=== PATIENT | male | born 1975 | race Caucasian/White ===

== ENCOUNTER 2017-04-13 14:07 | Emergency (ER) | payer OTHER ==
[~2017-04-13] VITALS: Ht 180.3 cm; Wt 90.7 kg
[~2017-04-13 14:07] MED LIST: ALBU4; ALBU90OI INH; AZIT250 PO; BENZ100A PO; CEPH500 PO; CLIN150 PO; CLIN300 PO; CRUTCH4 USE; Cleocin HCl300 MG PO; DIPATR PO; ERYT333ERA PO; HYDACE10B PO; HYDACE5 PO; IBUP800 PO; NAPR500 PO; NAPR550 PO; PENVK500 PO; PRED20 PO; PROM25 PO; Prednisone20 MG PO; Pseudoephedrine30 MG PO; ROBAFEN-DM SYR118 ML PO; RXHYDACE PO; SULTRIDS PO; Ultram50 MG PO
[2017-04-13] MEDS ORDERED: Vibramycin100 MG PO (16:00)
[2017-04-13] MEDS ORDERED: ALBU90OI INH (16:00)
[2017-04-13] MEDS ORDERED: Prednisone20 MG PO (16:00)
== END 2017-04-13 16:09 | disposition home or self-care (01) ==
LOC: ER 14:07
DX: R05 Cough (principal); Z88.0 Allergy status to penicillin; Z87.891 Personal history of nicotine dependence
CPT/HCPCS: 71046; 94640; 99284

== ENCOUNTER 2017-04-26 18:22 | Emergency (ER) | payer OTHER ==
[~2017-04-26] VITALS: Ht 180.3 cm; Wt 90.7 kg
[~2017-04-26 18:22] MED LIST changes: +Vibramycin100 MG PO
[2017-04-26 19:15] LABS: Troponin I <0.015 ng/mL (0.000-0.040)
[2017-04-26 19:17] LABS: Alanine Aminotransfer (ALT/SGP 26 U/L (12-78); Albumin, Blood 4.6 g/dL (3.4-5.0); Albumin/Globulin Ratio 1.2 (0.8-1.8); Alk Phos 120 U/L (50-136); Anion Gap 12 mmol/L (6-16); Aspartate Aminotrans (AST/SGOT 27 U/L (12-37); Bilirubin, Total 0.6 mg/dL (0.1-1.0); Blood Urea Nitrogen 6 mg/dL (8-24); Bun/Creatinine Ratio 8.5 (12.0-20.0); CO2, Blood 23 mmol/L (21-32); Calcium, Blood 9.6 mg/dL (8.5-10.1); Chloride, Blood 101 mmol/L (98-108); Creatinine, Blood 0.71 mg/dL (0.60-1.20); Globulin, Blood 3.7 g/dL (2.2-4.0); Glomerular Filtration Rate >60 (60-); Glucose, Blood 94 mg/dL (70-99); Potassium, Blood 3.3 mmol/L (3.5-5.5); Sodium, Blood 136 mmol/L (136-145); Total Protein, Blood 8.3 g/dL (6.4-8.2)
[2017-04-26 19:18] LABS: BASOPHILS ABSOLUTE AUTO 0.07 K/mm3 (0.00-0.23); BASOPHILS PERCENT AUTO 1 % (0-2); EOSINOPHILS ABSOLUTE AUTO 0.02 K/mm3 (0.00-0.68); EOSINOPHILS PERCENT AUTO 0 % (0-6); Hemoglobin 19.1 g/dL (13.5-17.5); IMMATURE GRAN ABSOLUTE AUTO 0.01 K/mm3 (0.00-0.10); IMMATURE GRAN PERCENT AUTO 0 % (0-1); LYMPHOCYTES ABSOLUTE AUTO 1.31 K/mm3 (0.84-5.20); LYMPHOCYTES PERCENT AUTO 18 % (21-46); MONOCYTES PERCENT AUTO 14 % (4-13); Mean Corpuscular HGB 30.7 pg (26.0-34.0); Mean Corpuscular HGB Conc 34.6 g/dL (31.5-36.5); Mean Corpuscular Volume 89 fL (80-100); Mean Platelet Volume 10.3 fL (9.1-12.4); NEUTROPHILS ABSOLUTE AUTO 4.82 K/mm3 (1.96-9.15); NEUTROPHILS PERCENT AUTO 67 % (41-73); Platelet Count 251 K/mm3 (150-400); RDW Coefficient Variation 12.5 % (11.7-14.2); RDW Standard Deviation 41.1 fL (35.1-46.3); Red Blood Cell Count 6.22 M/mm3 (4.30-5.90); White Blood Cell Count 7.23 K/mm3 (4.00-11.30)
[2017-04-26 19:27] LABS: Hematocrit 55.2 % (37.0-53.0)
== END 2017-04-26 21:20 | disposition home or self-care (01) ==
LOC: ER 18:22
PROVIDERS: Physician Assistant
DX: R07.9 Chest pain, unspecified (principal); Z88.0 Allergy status to penicillin; Z79.899 Other long term (current) drug therapy; Z79.52 Long term (current) use of systemic steroids; Z87.891 Personal history of nicotine dependence
CPT/HCPCS: 36415; 71046; 80053; 84484; 85025; 93005; 93010; 99283

== ENCOUNTER 2017-04-28 22:04 | Emergency (ER) | payer OTHER ==
[~2017-04-28] VITALS: Ht 180.3 cm; Wt 90.7 kg
[2017-04-28 22:39] LABS: Source, Urine Clean Catch
[2017-04-28 22:52] LABS: Bilirubin, Urine Neg (Neg); Blood, Urine 1+ (Neg); Glucose Qualitative, Urine Neg (Neg); Ketones, Urine Neg (Neg); Leukocyte Esterase, Urine 1+ (Neg); Nitrite, Urine Neg (Neg); Protein, Urine 1+ (Neg); Specific Gravity, Urine 1.025 (1.003-1.022); Urobilinogen, Urine 1+ (Normal)
[2017-04-28 22:53] LABS: BASOPHILS ABSOLUTE AUTO 0.01 K/mm3 (0.00-0.23); BASOPHILS PERCENT AUTO 0 % (0-2); EOSINOPHILS PERCENT AUTO 0 % (0-6); Hematocrit 49.7 % (37.0-53.0); Hemoglobin 17.7 g/dL (13.5-17.5); IMMATURE GRAN ABSOLUTE AUTO 0.01 K/mm3 (0.00-0.10); IMMATURE GRAN PERCENT AUTO 0 % (0-1); LYMPHOCYTES ABSOLUTE AUTO 1.34 K/mm3 (0.84-5.20); LYMPHOCYTES PERCENT AUTO 27 % (21-46); MONOCYTES ABSOLUTE AUTO 0.73 K/mm3 (0.16-1.47); MONOCYTES PERCENT AUTO 15 % (4-13); Mean Corpuscular HGB 30.9 pg (26.0-34.0); Mean Corpuscular HGB Conc 35.6 g/dL (31.5-36.5); Mean Corpuscular Volume 87 fL (80-100); Mean Platelet Volume 10.3 fL (9.1-12.4); NEUTROPHILS ABSOLUTE AUTO 2.94 K/mm3 (1.96-9.15); NEUTROPHILS PERCENT AUTO 59 % (41-73); Platelet Count 201 K/mm3 (150-400); RDW Coefficient Variation 12.3 % (11.7-14.2); RDW Standard Deviation 39.4 fL (35.1-46.3); Red Blood Cell Count 5.72 M/mm3 (4.30-5.90); White Blood Cell Count 5.03 K/mm3 (4.00-11.30)
[2017-04-28 22:58] LABS: Appearance, Urine Clear (Clear); Color, Urine Yellow (P-Yellow)
[2017-04-28 22:59] LABS: Bacteria Few /hpf; Mucus Light (0-Heavy); Red Blood Cells, Urine 0-2 /hpf (0-2); Squamous Epithelial Cells Not Seen /hpf (Few); White Blood Cells, Urine 0-2 /hpf (0-5)
[2017-04-28 23:20] LABS: Alanine Aminotransfer (ALT/SGP 65 U/L (12-78); Albumin/Globulin Ratio 1.1 (0.8-1.8); Alk Phos 94 U/L (50-136); Anion Gap 9 mmol/L (6-16); Aspartate Aminotrans (AST/SGOT 46 U/L (12-37); Bilirubin, Total 0.4 mg/dL (0.1-1.0); Blood Urea Nitrogen 16 mg/dL (8-24); Bun/Creatinine Ratio 19.3 (12.0-20.0); CO2, Blood 26 mmol/L (21-32); Calcium, Blood 8.5 mg/dL (8.5-10.1); Chloride, Blood 100 mmol/L (98-108); Creatinine, Blood 0.83 mg/dL (0.60-1.20); Globulin, Blood 3.6 g/dL (2.2-4.0); Glomerular Filtration Rate >60 (60-); Glucose, Blood 103 mg/dL (70-99); Potassium, Blood 3.6 mmol/L (3.5-5.5); Sodium, Blood 135 mmol/L (136-145); Total Protein, Blood 7.6 g/dL (6.4-8.2)
[2017-04-28] MEDS ORDERED: IBUP600 PO (23:31)
== END 2017-04-28 23:54 | disposition home or self-care (01) ==
LOC: ER 22:04
PROVIDERS: Emergency Medicine
DX: S39.012A Strain of muscle, fascia and tendon of lower back, initial encounter (principal); F17.200 Nicotine dependence, unspecified, uncomplicated; Z88.0 Allergy status to penicillin; W19.XXXA Unspecified fall, initial encounter; Y92.002 Bathroom of unspecified non-institutional (private) residence as the place of occurrence of the external cause
CPT/HCPCS: 36415; 72100; 80053; 81001; 85025; 87086; 99283

== ENCOUNTER → 2017-05-22 | Outpatient (CLI) | payer OTHER ==
[~2017-05-22] MED LIST changes: +IBUP400 PO; +IBUP600 PO
== END | disposition home or self-care (01) ==
LOC: LAB 13:49
PROVIDERS: Internal Medicine Hematology & Oncology
DX: E83.119 Hemochromatosis, unspecified (principal)
CPT/HCPCS: 81256

== ENCOUNTER 2017-09-06 20:34 | Emergency (ER) | payer OTHER ==
[~2017-09-06] VITALS: Ht 180.3 cm; Wt 95.2 kg
[~2017-09-06 20:34] MED LIST changes: -IBUP400 PO
[2017-09-06] MEDS ORDERED: IBUP400 PO (22:59)
== END 2017-09-06 23:14 | disposition home or self-care (01) ==
LOC: ER 20:34
DX: M79.605 Pain in left leg (principal); Z88.0 Allergy status to penicillin; F17.200 Nicotine dependence, unspecified, uncomplicated
CPT/HCPCS: 73590

== ENCOUNTER 2018-03-14 14:15 | Emergency (ER) | payer OTHER ==
[~2018-03-14] VITALS: Ht 180.3 cm; Wt 90.7 kg
[~2018-03-14 14:15] MED LIST changes: +IBUP400 PO
[2018-03-14] MEDS ORDERED: Cleocin HCl300 MG PO (15:13)
[2018-03-14] MEDS ORDERED: IBUP800 PO (15:13)
== END 2018-03-14 15:18 | disposition home or self-care (01) ==
LOC: ER 14:15
DX: K02.9 Dental caries, unspecified (principal); F17.210 Nicotine dependence, cigarettes, uncomplicated; Z88.0 Allergy status to penicillin
CPT/HCPCS: 99282

== ENCOUNTER 2019-02-09 17:36 | Emergency (ER) | payer OTHER ==
[~2019-02-09] VITALS: Ht 177.8 cm; Wt 90.7 kg
[2019-02-09] MEDS ORDERED: Prednisone20 MG PO (19:55)
== END 2019-02-09 20:21 | disposition home or self-care (01) ==
LOC: ER 17:36
DX: R06.2 Wheezing (principal); R05 Cough; F17.200 Nicotine dependence, unspecified, uncomplicated; Z88.0 Allergy status to penicillin
CPT/HCPCS: 71046; 94640; 99283-25

== ENCOUNTER 2019-03-23 16:26 | Emergency (ER) | payer OTHER ==
[~2019-03-23] VITALS: Ht 180.3 cm; Wt 95.7 kg
[2019-03-23] MEDS ORDERED: ALBU90OI INH (18:20)
== END 2019-03-23 18:28 | disposition home or self-care (01) ==
LOC: ER 16:26
DX: J45.909 Unspecified asthma, uncomplicated (principal); J20.9 Acute bronchitis, unspecified; Z88.0 Allergy status to penicillin; Z79.52 Long term (current) use of systemic steroids; F17.200 Nicotine dependence, unspecified, uncomplicated
CPT/HCPCS: 71046; 93005; 93010; 99283-25

== ENCOUNTER 2019-03-28 23:56 | Emergency (ER) | payer OTHER ==
[~2019-03-28] VITALS: Ht 180.3 cm; Wt 95.2 kg
[2019-03-29] MEDS ORDERED: Zithromax250 MG PO (01:27)
[2019-03-29] MEDS ORDERED: Prednisone50 MG PO (01:27)
== END 2019-03-29 02:07 | disposition home or self-care (01) ==
LOC: ER 23:56
DX: J44.1 Chronic obstructive pulmonary disease with (acute) exacerbation (principal); F17.210 Nicotine dependence, cigarettes, uncomplicated; Z88.0 Allergy status to penicillin
CPT/HCPCS: 71045; 93005; 93010; 94640; 99284-25; J1100

== ENCOUNTER 2019-05-17 19:03 | Emergency (ER) | payer OTHER ==
[~2019-05-17] VITALS: Ht 180.3 cm; Wt 97.5 kg
[~2019-05-17 19:03] MED LIST changes: +Prednisone50 MG PO; +Zithromax250 MG PO
[2019-05-17] MEDS ORDERED: Cipro500 MG PO (22:22)
== END 2019-05-17 22:30 | disposition home or self-care (01) ==
LOC: ER 19:03
DX: S91.332A Puncture wound without foreign body, left foot, initial encounter (principal); F17.210 Nicotine dependence, cigarettes, uncomplicated; Z88.0 Allergy status to penicillin; W45.0XXA Nail entering through skin, initial encounter
CPT/HCPCS: 73620; 90471; 90714; 99283-25

== ENCOUNTER 2019-10-13 16:16 | Emergency (ER) | payer OTHER ==
[~2019-10-13] VITALS: Ht 180.3 cm; Wt 104.3 kg
[~2019-10-13 16:16] MED LIST changes: +Cipro500 MG PO
== END 2019-10-13 17:30 | disposition home or self-care (01) ==
LOC: ER 16:16
DX: Z04.1 Encounter for examination and observation following transport accident (principal); Z88.0 Allergy status to penicillin; Z79.2 Long term (current) use of antibiotics; F17.210 Nicotine dependence, cigarettes, uncomplicated; V89.2XXA Person injured in unspecified motor-vehicle accident, traffic, initial encounter
CPT/HCPCS: 99284

== ENCOUNTER 2020-07-06 10:30 | Emergency (ER) | payer OTHER ==
[~2020-07-06] VITALS: Ht 180.3 cm; Wt 108.9 kg
== END 2020-07-06 11:50 | disposition home or self-care (01) ==
LOC: ER 10:30
DX: S61.431A Puncture wound without foreign body of right hand, initial encounter (principal); F17.210 Nicotine dependence, cigarettes, uncomplicated; Z88.0 Allergy status to penicillin
CPT/HCPCS: 73120; 99283-25

== ENCOUNTER → 2020-11-24 | Outpatient (CLI) | payer OTHER ==
[2020-11-24 10:42] LABS: BASOPHILS ABSOLUTE AUTO 0.06 K/mm3 (0.00-0.23); BASOPHILS PERCENT AUTO 1 % (0-2); EOSINOPHILS ABSOLUTE AUTO 0.03 K/mm3 (0.00-0.68); EOSINOPHILS PERCENT AUTO 1 % (0-6); Hematocrit 50.8 % (37.0-53.0); Hemoglobin 17.3 g/dL (13.5-17.5); IMMATURE GRAN ABSOLUTE AUTO 0.02 K/mm3 (0.00-0.10); IMMATURE GRAN PERCENT AUTO 0 % (0-1); LYMPHOCYTES ABSOLUTE AUTO 1.32 K/mm3 (0.84-5.20); LYMPHOCYTES PERCENT AUTO 22 % (21-46); MONOCYTES ABSOLUTE AUTO 0.97 K/mm3 (0.16-1.47); MONOCYTES PERCENT AUTO 17 % (4-13); Mean Corpuscular HGB 30.2 pg (26.0-34.0); Mean Corpuscular HGB Conc 34.1 g/dL (31.5-36.5); Mean Corpuscular Volume 89 fL (80-100); Mean Platelet Volume 10.2 fL (9.1-12.4); NEUTROPHILS ABSOLUTE AUTO 3.48 K/mm3 (1.96-9.15); NEUTROPHILS PERCENT AUTO 59 % (41-73); Platelet Count 251 K/mm3 (150-400); RDW Coefficient Variation 12.9 % (11.7-14.2); RDW Standard Deviation 41.9 fL (35.1-46.3); Red Blood Cell Count 5.72 M/mm3 (4.30-5.90); White Blood Cell Count 5.88 K/mm3 (4.00-11.30)
== END | disposition home or self-care (01) ==
LOC: LAB 10:37 → LAB SHORT 10:37
PROVIDERS: Registered Nurse Oncology
DX: E83.119 Hemochromatosis, unspecified (principal)
CPT/HCPCS: 82728; 83540; 83550; 85025; 85651

== ENCOUNTER 2021-05-31 12:12 | Emergency (ER) | payer OTHER ==
[~2021-05-31] VITALS: Ht 180.3 cm; Wt 113.4 kg
== END 2021-05-31 13:55 | disposition home or self-care (01) ==
LOC: ER 12:12
DX: S61.211A Laceration without foreign body of left index finger without damage to nail, initial encounter (principal); Z88.0 Allergy status to penicillin; F17.210 Nicotine dependence, cigarettes, uncomplicated; W25.XXXA Contact with sharp glass, initial encounter
CPT/HCPCS: 12001; 99282

== ENCOUNTER → 2022-12-26 | Outpatient (CLI) | payer OTHER ==
[2022-12-26 19:42] LABS: BASOPHILS ABSOLUTE AUTO 0.12 K/mm3 (0.00-0.23); BASOPHILS PERCENT AUTO 1 % (0-2); EOSINOPHILS ABSOLUTE AUTO 0.62 K/mm3 (0.00-0.68); EOSINOPHILS PERCENT AUTO 6 % (0-6); Hematocrit 47.9 % (37.0-53.0); Hemoglobin 17.1 g/dL (13.5-17.5); IMMATURE GRAN ABSOLUTE AUTO 0.03 K/mm3 (0.00-0.10); IMMATURE GRAN PERCENT AUTO 0 % (0-1); LYMPHOCYTES ABSOLUTE AUTO 2.73 K/mm3 (0.84-5.20); LYMPHOCYTES PERCENT AUTO 24 % (21-46); MONOCYTES ABSOLUTE AUTO 1.08 K/mm3 (0.16-1.47); MONOCYTES PERCENT AUTO 10 % (4-13); Mean Corpuscular HGB 31.6 pg (26.0-34.0); Mean Corpuscular HGB Conc 35.7 g/dL (31.5-36.5); Mean Corpuscular Volume 89 fL (80-100); Mean Platelet Volume 11.1 fL (9.1-12.4); NEUTROPHILS ABSOLUTE AUTO 6.67 K/mm3 (1.96-9.15); NEUTROPHILS PERCENT AUTO 59 % (41-73); Platelet Count 373 K/mm3 (150-400); RDW Coefficient Variation 12.6 % (11.7-14.2); RDW Standard Deviation 40.9 fL (35.1-46.3); Red Blood Cell Count 5.41 M/mm3 (4.30-5.90); White Blood Cell Count 11.25 K/mm3 (4.00-11.30)
[2022-12-26 22:01] LABS: Alanine Aminotransfer (ALT/SGP 28 U/L (12-78); Albumin, Blood 4.6 g/dL (3.4-5.0); Albumin/Globulin Ratio 1.5 (0.8-1.8); Alk Phos 121 U/L (50-136); Anion Gap 5 mmol/L (6-16); Aspartate Aminotrans (AST/SGOT 11 U/L (12-37); Bilirubin, Total 0.3 mg/dL (0.1-1.0); Blood Urea Nitrogen 14 mg/dL (8-24); Bun/Creatinine Ratio 14.7 (12.0-20.0); CHOL/HDL RATIO 6.5; CO2, Blood 26 mmol/L (21-32); Calcium, Blood 9.4 mg/dL (8.5-10.1); Chloride, Blood 105 mmol/L (98-108); Cholesterol 221 mg/dL (50-200); Creatinine, Blood 0.95 mg/dL (0.60-1.20); Globulin, Blood 3.1 g/dL (2.2-4.0); Glomerular Filtration Rate 101 (60-); Glucose, Blood 95 mg/dL (70-99); HDL Cholesterol 34 mg/dL (>39); LDL/HDL RATIO 3.8; Low Density Lipoprotein Chol 128 mg/dL (0-110); Potassium, Blood 4.2 mmol/L (3.5-5.5); Sodium, Blood 136 mmol/L (136-145); Total Protein, Blood 7.7 g/dL (6.4-8.2); Triglycerides 296 mg/dL (30-160); Very Low Density Lipoprot Chol 59 mg/dL (6-32)
== END | disposition home or self-care (01) ==
LOC: LAB 18:48 → LAB SHORT 18:48
PROVIDERS: Nurse Practitioner Family
DX: E55.9 Vitamin D deficiency, unspecified (principal); E78.5 Hyperlipidemia, unspecified; I10 Essential (primary) hypertension
CPT/HCPCS: 80053; 80061; 82306; 85025

== ENCOUNTER 2023-09-07 12:43 | Emergency (ER) | payer OTHER ==
[~2023-09-07] VITALS: Ht 180.3 cm; Wt 113.4 kg
[2023-09-07 13:32] VITALS: BP 139/80
[2023-09-07] MEDS ORDERED: LISI20 PO (13:36)
[2023-09-07] MEDS ORDERED: ALBUTEROL HFA 90MCG (13:37)
[2023-09-07] MEDS ORDERED: IPRAT-ALBUT 0.5-3 ML (13:37)
[2023-09-07] MEDS ORDERED: CEPH500 PO (13:44)
[2023-09-07] MEDS ORDERED: CLIN150 PO (13:44)
== END 2023-09-07 13:47 | disposition home or self-care (01) ==
LOC: ER 12:43
DX: L03.115 Cellulitis of right lower limb (principal); F17.210 Nicotine dependence, cigarettes, uncomplicated
CPT/HCPCS: 99283

== ENCOUNTER 2023-11-22 23:47 | Emergency (ER) | payer SELFPAY ==
[~2023-11-22] VITALS: Ht 180.3 cm; Wt 113.4 kg
[~2023-11-22 23:47] MED LIST changes: +ALBUTEROL HFA 90MCG; +IPRAT-ALBUT 0.5-3 ML; +LISI20 PO
[2023-11-23] MEDS ORDERED: Lidocaine 4% 1 Patch TOP ONE (02:10)
[2023-11-23] MEDS ORDERED: Acetaminophen 500 MG Tab PO ONE (02:10)
[2023-11-23] MEDS ORDERED: Ibuprofen 600 MG Tab PO ONE (02:10)
[2023-11-23 02:15] VITALS: BP 131/73
[2023-11-23] MEDS ORDERED: LIDO700A20 TOP (02:16)
== END 2023-11-23 02:27 | disposition home or self-care (01) ==
LOC: ER 23:47
DX: M75.52 Bursitis of left shoulder (principal); I10 Essential (primary) hypertension; Z68.34 Body mass index [BMI] 34.0-34.9, adult; F17.210 Nicotine dependence, cigarettes, uncomplicated; Z79.899 Other long term (current) drug therapy; Z88.0 Allergy status to penicillin
CPT/HCPCS: 93005; 93010; 99283-25; A9270

== ENCOUNTER 2024-01-04 11:01 | Emergency (ER) | payer SELFPAY ==
[~2024-01-04] VITALS: Ht 180.3 cm; Wt 112.5 kg
[~2024-01-04 11:01] MED LIST changes: +LIDO700A20 TOP
[2024-01-04 11:14] VITALS: BP 140/90
[2024-01-04] MEDS ORDERED: CEPH500 PO (11:18)
[2024-01-04] MEDS ORDERED: MONDOXYNE NL100 MG PO (12:27)
== END 2024-01-04 11:18 | disposition home or self-care (01) ==
LOC: ER 11:01
DX: J34.0 Abscess, furuncle and carbuncle of nose (principal); F17.210 Nicotine dependence, cigarettes, uncomplicated; Z79.899 Other long term (current) drug therapy; Z88.0 Allergy status to penicillin
CPT/HCPCS: 99282

== ENCOUNTER 2024-01-06 09:08 | Emergency (ER) | payer SELFPAY ==
[~2024-01-06] VITALS: Ht 180.3 cm; Wt 113.4 kg
[~2024-01-06 09:08] MED LIST changes: +MONDOXYNE NL100 MG PO
[2024-01-06 09:39] VITALS: BP 136/78
[2024-01-06] MEDS ORDERED: CEPH500 PO (10:10)
== END 2024-01-06 10:50 | disposition home or self-care (01) ==
LOC: ER 09:08
DX: A46 Erysipelas (principal); J44.9 Chronic obstructive pulmonary disease, unspecified; I10 Essential (primary) hypertension; F17.210 Nicotine dependence, cigarettes, uncomplicated; Z88.0 Allergy status to penicillin; Z79.899 Other long term (current) drug therapy
CPT/HCPCS: 87070; 87077; 87147; 87186; 87205; 99283

== ENCOUNTER 2024-01-07 11:54 | Emergency (ER) | payer SELFPAY ==
[~2024-01-07] VITALS: Ht 180.3 cm; Wt 113.4 kg
[2024-01-07 11:59] VITALS: BP 190/93
[2024-01-07 12:18] LABS: BASOPHILS ABSOLUTE AUTO 0.11 K/mm3 (0.00-0.23); BASOPHILS PERCENT AUTO 1 % (0-2); EOSINOPHILS ABSOLUTE AUTO 0.89 K/mm3 (0.00-0.68); EOSINOPHILS PERCENT AUTO 9 % (0-6); Hematocrit 48.8 % (37.0-53.0); Hemoglobin 17.3 g/dL (13.5-17.5); IMMATURE GRAN ABSOLUTE AUTO 0.01 K/mm3 (0.00-0.10); IMMATURE GRAN PERCENT AUTO 0 % (0-1); LYMPHOCYTES ABSOLUTE AUTO 2.07 K/mm3 (0.84-5.20); LYMPHOCYTES PERCENT AUTO 20 % (21-46); MONOCYTES PERCENT AUTO 9 % (4-13); Mean Corpuscular HGB 31.2 pg (26.0-34.0); Mean Corpuscular HGB Conc 35.5 g/dL (31.5-36.5); Mean Corpuscular Volume 88 fL (80-100); NEUTROPHILS ABSOLUTE AUTO 6.27 K/mm3 (1.96-9.15); NEUTROPHILS PERCENT AUTO 61 % (41-73); Platelet Count 281 K/mm3 (150-400); RDW Coefficient Variation 12.2 % (11.7-14.2); RDW Standard Deviation 39.4 fL (35.1-46.3); Red Blood Cell Count 5.55 M/mm3 (4.30-5.90); White Blood Cell Count 10.25 K/mm3 (4.00-11.30)
[2024-01-07 12:32] LABS: Albumin, Blood 4.2 g/dL (3.4-5.0); Albumin/Globulin Ratio 1.3 (0.8-1.8); Bilirubin, Total 0.4 mg/dL (0.1-1.0); Bun/Creatinine Ratio 15.3 (12.0-20.0); Calcium, Blood 9.2 mg/dL (8.5-10.1); Creatinine, Blood 0.85 mg/dL (0.60-1.20); Globulin, Blood 3.3 g/dL (2.2-4.0); Potassium, Blood 3.9 mmol/L (3.5-5.5); Total Protein, Blood 7.5 g/dL (6.4-8.2)
== END 2024-01-07 16:28 | disposition home or self-care (01) ==
LOC: ER 11:54
PROVIDERS: Physician Assistant
DX: K12.2 Cellulitis and abscess of mouth (principal); K04.7 Periapical abscess without sinus; I10 Essential (primary) hypertension; J44.9 Chronic obstructive pulmonary disease, unspecified; F17.210 Nicotine dependence, cigarettes, uncomplicated; Z88.0 Allergy status to penicillin; Z79.899 Other long term (current) drug therapy
CPT/HCPCS: 70487; 80053; 85025; 99283-25; Q9967

== ENCOUNTER 2024-05-26 19:09 | Emergency (ER) | payer SELFPAY ==
[~2024-05-26] VITALS: Ht 180.3 cm; Wt 113.4 kg
[2024-05-26 19:50] VITALS: BP 144/88
[2024-05-27] MEDS ORDERED: CEPH500 PO (10:11)
== END 2024-05-26 22:03 | disposition home or self-care (01) ==
LOC: ER 19:09
DX: M85.612 Other cyst of bone, left shoulder (principal); I10 Essential (primary) hypertension; J44.9 Chronic obstructive pulmonary disease, unspecified; Z88.0 Allergy status to penicillin; Z79.899 Other long term (current) drug therapy; Z79.51 Long term (current) use of inhaled steroids; Z79.2 Long term (current) use of antibiotics; Z79.891 Long term (current) use of opiate analgesic; F17.210 Nicotine dependence, cigarettes, uncomplicated
CPT/HCPCS: 99282

== ENCOUNTER 2024-05-27 09:41 | Emergency (ER) | payer SELFPAY ==
[~2024-05-27] VITALS: Ht 180.3 cm; Wt 113.4 kg
[2024-05-27 09:53] VITALS: BP 128/84
[2024-05-27] MEDS ORDERED: CEPH500 PO (10:11)
== END 2024-05-27 10:24 | disposition home or self-care (01) ==
LOC: ER 09:41
DX: L02.414 Cutaneous abscess of left upper limb (principal); I10 Essential (primary) hypertension; J44.9 Chronic obstructive pulmonary disease, unspecified; F17.210 Nicotine dependence, cigarettes, uncomplicated; Z98.1 Arthrodesis status; Z88.0 Allergy status to penicillin; Z79.899 Other long term (current) drug therapy
CPT/HCPCS: 23030; 99283-25

== ENCOUNTER 2025-01-13 23:23 | Emergency (ER) | payer SELFPAY ==
[~2025-01-13] VITALS: Ht 180.3 cm; Wt 113.4 kg
[2025-01-14 00:14] VITALS: BP 134/87
[2025-01-14 00:15] LABS: BASOPHILS ABSOLUTE AUTO 0.09 K/mm3 (0.00-0.23); BASOPHILS PERCENT AUTO 1 % (0-2); EOSINOPHILS ABSOLUTE AUTO 0.19 K/mm3 (0.00-0.68); EOSINOPHILS PERCENT AUTO 2 % (0-6); Hematocrit 45.7 % (37.0-53.0); Hemoglobin 16.5 g/dL (13.5-17.5); IMMATURE GRAN ABSOLUTE AUTO 0.02 K/mm3 (0.00-0.10); IMMATURE GRAN PERCENT AUTO 0 % (0-1); LYMPHOCYTES ABSOLUTE AUTO 3.22 K/mm3 (0.84-5.20); LYMPHOCYTES PERCENT AUTO 27 % (21-46); MONOCYTES ABSOLUTE AUTO 1.11 K/mm3 (0.16-1.47); MONOCYTES PERCENT AUTO 9 % (4-13); Mean Corpuscular HGB Conc 36.1 g/dL (31.5-36.5); Mean Corpuscular Volume 90 fL (80-100); NEUTROPHILS ABSOLUTE AUTO 7.14 K/mm3 (1.96-9.15); NEUTROPHILS PERCENT AUTO 61 % (41-73); NRBC ABSOLUTE 0.00 K/mm3 (0.00-0.02); NRBC Auto 0.0 /100 WBC (0.0-0.2); Platelet Count 316 K/mm3 (150-400); RDW Coefficient Variation 12.4 % (11.7-14.2); RDW Standard Deviation 40.9 fL (35.1-46.3)
[2025-01-14 00:44] LABS: Alanine Aminotransfer (ALT/SGP 44.0 U/L (12-78); Albumin, Blood 4.1 g/dL (3.4-5.0); Albumin/Globulin Ratio 1.2 (0.8-1.8); Anion Gap 8.0 mmol/L (3-11); Aspartate Aminotrans (AST/SGOT 20.0 U/L (12-37); Bilirubin, Total 0.2 mg/dL (0.1-1.0); Blood Urea Nitrogen 10.0 mg/dL (8-24); CO2, Blood 28.0 mmol/L (21-32); Calcium, Blood 9.0 mg/dL (8.5-10.1); Chloride, Blood 102.0 mmol/L (98-108); Creatinine, Blood 0.78 mg/dL (0.60-1.20); Globulin, Blood 3.3 g/dL (2.2-4.0); Glucose, Blood 126.0 mg/dL (70-99); Magnesium, Blood 2.1 mg/dL (1.6-2.4); Potassium, Blood 3.6 mmol/L (3.5-5.5); Sodium, Blood 134.0 mmol/L (136-145); Total Protein, Blood 7.4 g/dL (6.4-8.2)
[2025-01-14] MEDS ORDERED: RX Prepack Albuterol 1 PREPACK/6.7 GM INH UD ONE (01:15)
== END 2025-01-14 01:20 | disposition home or self-care (01) ==
LOC: ER 23:23
PROVIDERS: Student in an Organized Health Care Education/Training Program
DX: R07.89 Other chest pain (principal); I10 Essential (primary) hypertension; J44.9 Chronic obstructive pulmonary disease, unspecified; F17.210 Nicotine dependence, cigarettes, uncomplicated; Z88.0 Allergy status to penicillin; Z79.899 Other long term (current) drug therapy
CPT/HCPCS: 71045; 80053; 83690; 83735; 84484; 85025; 93005; 93010; 99285-25; A9270